=== PATIENT | female | born 1970 | race Caucasian/White ===

== ENCOUNTER 2020-05-09 19:46 | Emergency (ER) | payer BC, SELFPAY ==
[2020-05-09 19:47] VITALS: BP 134/85; PULSE 87; RESP 14; TEMP 36.8; O2SAT 97; BMI 25.9
--- NOTE | 2020-05-09 19:53 | CTR_ITS ---
PROCEDURE INFORMATION: Exam: CT Head Without Contrast Exam date and time: 05/09/2020 7:58 PM Age: 49 years old Clinical indication: Alteration of consciousness; Other: Found unresponsive; Patient HX: Possible carbon monoxide poisoning; Additional info: AMS TECHNIQUE: Imaging protocol: Computed tomography of the head without contrast. Radiation optimization: All CT scans at this facility use at least one of these dose optimization techniques: automated exposure control; mA and/or kV adjustment per patient size (includes targeted exams where dose is matched to clinical indication); or iterative reconstruction. COMPARISON: No relevant prior studies available. RADIATION DOSE METRICS: Total DLP (mGy-cm): 846.14 FINDINGS: Brain: Normal. No hemorrhage. Unremarkable white matter. No mass effect. Ventricles: Normal. No ventriculomegaly. Bones/joints: Unremarkable. No acute fracture. Sinuses: Visualized sinuses are unremarkable. No fluid levels. Mastoid air cells: Visualized mastoid air cells are well aerated. Soft tissues: Unremarkable. CT/CT head wo con* [id number] IMPRESSION: No acute intracranial abnormality. Radiation Dose CTDIVOL = (mGy): DLP = 846.14 (mGy-cm)
--- NOTE | 2020-05-09 20:02 | W.ED.GENADLT ---
HPI - General Adult General: Chief complaint: General Medical Stated complaint: LENNON/ POSSIBLE EXPOSURE/ FOUND UNRESPONSIVE Time Seen by Provider: 05/09/20 19:47 Source: patient and EMS Mode of arrival: EMS Limitations: no limitations History of Present Illness: HPI narrative: 49-year-old female who states that they were prepping to go on RV trip and she had the RV running down in the garage and she was upstairs. All the areas were and closed and patient states she had a headache so she took 3 tramadol's. arrived patient was unconscious and he could smell exhausts. EMS arrived patient had a pinpoint pupils they gave her Narcan. She awoke and states that she was having a terrible headache is why she took the tramadol. Concerned of also carbon monoxide poisoning. Patient is now awake and alert able answer all my questions appropriately she states she still does have a headache. Associated symptoms: Reports headache(s); Deny chest pain, dyspnea, nausea, rash or vomiting Review of Systems Const: Denies: fever(s), chills, body aches or change in appetite Eyes: Denies: blurry vision or eye discomfort ENMT: Denies: throat pain or dental pain Card: Denies: chest pain Resp: Denies: dyspnea GI: Denies: abdominal pain, nausea, vomiting or diarrhea : Denies: dysuria Musc: Denies: neck pain or back pain Skin/Breast: Denies: rash Neuro: Reports: headache(s) Psych: Denies: depression Catrachito/Lymph: Denies: easy bruising All/Imm: Denies: urticaria Physical Exam Const: COMMON NORMALS: no acute distress, patient oriented x3 and healthy appearing HENMT: COMMON NORMALS: normocephalic and atraumatic HEAD & SCALP: normocephalic and atraumatic Eye: COMMON NORMALS: Equal, round and reactive pupils present and EOMs intact bilaterally PUPIL: Yes Equal, round and reactive pupils present Neck/C-Spine: COMMON NORMALS: full ROM and supple Chest: COMMONS NORMALS: normal inspection of the chest and normal palpation of entire chest wall Resp: COMMON NORMALS: normal respiratory effort, No retractions, No use of accessory muscles and clear to auscultation bilaterally AUSCULTATION: clear to auscultation bilaterally Cardio: COMMON NORMALS: regular rate, regular rhythm and No murmurs present (Cardio) RATE: regular rate RHYTHM: regular rhythm GI: COMMON NORMALS: Normal to inspection, nondistended, normoactive bowel sounds present, Soft to palpation, non-tender and no masses PALPATION: Yes Soft to palpation Extremity: COMMON NORMALS: normal to inspection and full ROM Neuro: COMMON NORMALS: patient oriented x3, moves all extremities and no focal motor deficits Psych: COMMON NORMALS: mental status grossly normal, Normal thought process present and cooperative THOUGHT PROCESS: Normal thought process present Skin: COMMON NORMALS: no rashes or lesions noted and no wounds GENERAL SKIN EXAM: no rashes or lesions noted Course Vital Signs: Vital signs: Vital Signs Temperature 98.2 F 05/09/20 19:47 Pulse Rate 82 05/09/20 23:29 Respiratory Rate 18 05/09/20 23:29 Blood Pressure 148/74 05/09/20 23:29 Pulse Oximetry 95 05/09/20 23:29 MDM - General Adult MDM Narrative: Medical decision making narrative: Lilly presents here with car monoxide exposure and poisoning. Patient is been awake and alert here the whole time and has been asymptomatic. Patient's carboxy level dropped to 6. Her lab work is normal. She has no signs of overdose. I spoke to poison control they recommended she was safe for discharge. Patient is wanting to be discharged I feel she is stable and is to return if she has any symptoms. She understands agrees to plan. Lab Data: Labs: Lab Results 05/09/20 05/09/20 05/09/20 Range/Units 20:07 20:26 20:26 WBC 15.2 H (4.0-10.0) 10^3/ uL RBC 4.06 L (4.1-5.3) 10^6/u L Hgb 12.4 (11.5-15.3) g/dL Hct 37.1 (37.0-47.0) % MCV 91.4 (81-99) fL MCH 30.5 (28.0-34.0) pg MCHC 33.4 (30.0-36.0) g/dL RDW 13.8 (12.1-15.1) % Plt Count 296 (130-400) 10^3/c mm MPV 11.2 H (7.4-10.4) fL Neut % (Auto) 88.0 % Lymph % (Auto) 8.1 % [place] % (Auto) 3.2 % Eos % (Auto) 0.1 % Baso % (Auto) 0.3 % Neut # (Auto) 13.33 H (1.8-7.7) 10^3/u L Lymph # (Auto) 1.2 (0.8-4.8) 10^3/u L [place] # (Auto) 0.5 (0.2-0.9) 10^3/u L Eos # (Auto) 0.0 (0.0-0.8) 10^3/u L Baso # (Auto) 0.1 (0.0-0.1) 10^3/u L Nucleated RBC % (a uto) 0 % Nucleated RBCs # 0.0 /100WBC Specimen Type Arterial Sample Site Brachial, right ABG pH 7.35 (7.35-7.45) ABG pCO2 43.0 (35-45) mmHg ABG pO2 436.0 H (80.0-100.0) mmH g ABG HCO3 23.8 (22-26) mmol/L ABG O2 Saturation ABG Base Excess -1.9 (-2.0-2.0) mmol/ L Tom Test N/a Hematocrit 38.7 (37-47) % Hgb O2 Saturation 72.6 L (95-100) % Carboxyhemoglobin 26.4 H (0.4-20.1) %THgb Methemoglobin 1.1 (0.4-1.5) % Total Hemoglobin 12.6 (12-16) g/dL O2 Delivery Device Nrb O2 Liters/Min 15.0 % Specimen Drawn By Equipment Maint Tech ID Harkr Sodium 135 L (136-145) mmol/L Potassium 3.8 (3.5-5.1) mmol/L Chloride 102 (98-107) mmol/L Carbon Dioxide 24 (22-29) mmol/L Anion Gap 12.8 (5-19) BUN 17 (6-20) mg/dL Creatinine 0.8 (0.5-0.9) mg/dL GFR Calculation 75.9 L (90-130) mL/min Glucose 187 H (65-115) mg/dL Calculated Osmolal ity 281 L (285-295) mOsm/k g Lactate (0.5-2.2) mmol/L Calcium 9.2 (8.5-10.5) mg/dL Total Bilirubin 0.2 (0.15-1.2) mg/dL AST 16 (0-32) U/L ALT 12 (0-33) U/L Alkaline Phosphata se 50 (35-105) IU/L Troponin T Baselin e (0-10) ng/L Troponin T 120 Min [place] (0-10) ng/L Delta Troponin T (0-10) ABS# Total Protein 6.4 L (6.6-8.7) g/dL Albumin 4.2 (3.5-5.2) g/dL Globulin 2.2 (1.3-4.6) g/dL Salicylates < 0.3 L (3-10) mg/dL Acetaminophen < 5.0 L (10-30) ug/mL Ethyl Alcohol < 10 (0-10) mg/dL 05/09/20 05/09/20 05/09/20 Range/Units 20:26 20:54 22:04 WBC (4.0-10.0) 10^3/ uL RBC (4.1-5.3) 10^6/u L Hgb (11.5-15.3) g/dL Hct (37.0-47.0) % MCV (81-99) fL MCH (28.0-34.0) pg MCHC (30.0-36.0) g/dL RDW (12.1-15.1) % Plt Count (130-400) 10^3/c mm MPV (7.4-10.4) fL Neut % (Auto) % Lymph % (Auto) % [place] % (Auto) % Eos % (Auto) % Baso % (Auto) % Neut # (Auto) (1.8-7.7) 10^3/u L Lymph # (Auto) (0.8-4.8) 10^3/u L [place] # (Auto) (0.2-0.9) 10^3/u L Eos # (Auto) (0.0-0.8) 10^3/u L Baso # (Auto) (0.0-0.1) 10^3/u L Nucleated RBC % (a uto) % Nucleated RBCs # /100WBC Specimen Type Arterial Sample Site Brachial, right ABG pH 7.39 (7.35-7.45) ABG pCO2 39.1 (35-45) mmHg ABG pO2 324.0 H (80.0-100.0) mmH g ABG HCO3 23.9 (22-26) mmol/L ABG O2 Saturation ABG Base Excess -0.9 (-2.0-2.0) mmol/ L Tom Test N/a Hematocrit 40.6 (37-47) % Hgb O2 Saturation (95-100) % Carboxyhemoglobin (0.4-20.1) %THgb Methemoglobin (0.4-1.5) % Total Hemoglobin (12-16) g/dL O2 Delivery Device Nrb O2 Liters/Min 15.0 % Specimen Drawn By Harkr Equipment Maint Tech ID Harkr Sodium (136-145) mmol/L Potassium (3.5-5.1) mmol/L Chloride (98-107) mmol/L Carbon Dioxide (22-29) mmol/L Anion Gap (5-19) BUN (6-20) mg/dL Creatinine (0.5-0.9) mg/dL GFR Calculation (90-130) mL/min Glucose (65-115) mg/dL Calculated Osmolal ity (285-295) mOsm/k g Lactate 1.7 (0.5-2.2) mmol/L Calcium (8.5-10.5) mg/dL Total Bilirubin (0.15-1.2) mg/dL AST (0-32) U/L ALT (0-33) U/L Alkaline Phosphata se (35-105) IU/L Troponin T Baselin e 8 (0-10) ng/L Troponin T 120 Min [place] (0-10) ng/L Delta Troponin T (0-10) ABS# Total Protein (6.6-8.7) g/dL Albumin (3.5-5.2) g/dL Globulin (1.3-4.6) g/dL Salicylates (3-10) mg/dL Acetaminophen (10-30) ug/mL Ethyl Alcohol (0-10) mg/dL 05/09/20 05/09/20 Range/Units 22:21 22:45 WBC (4.0-10.0) 10^3/ uL RBC (4.1-5.3) 10^6/u L Hgb (11.5-15.3) g/dL Hct (37.0-47.0) % MCV (81-99) fL MCH (28.0-34.0) pg MCHC (30.0-36.0) g/dL RDW (12.1-15.1) % Plt Count (130-400) 10^3/c mm MPV (7.4-10.4) fL Neut % (Auto) % Lymph % (Auto) % [place] % (Auto) % Eos % (Auto) % Baso % (Auto) % Neut # (Auto) (1.8-7.7) 10^3/u L Lymph # (Auto) (0.8-4.8) 10^3/u L [place] # (Auto) (0.2-0.9) 10^3/u L Eos # (Auto) (0.0-0.8) 10^3/u L Baso # (Auto) (0.0-0.1) 10^3/u L Nucleated RBC % (a uto) % Nucleated RBCs # /100WBC Specimen Type Sample Site ABG pH 7.39 (7.35-7.45) ABG pCO2 39.1 (35-45) mmHg ABG pO2 324.0 H (80.0-100.0) mmH g ABG HCO3 23.9 (22-26) mmol/L ABG O2 Saturation 97 ABG Base Excess -0.9 (-2.0-2.0) mmol/ L Tom Test N/a Hematocrit 40.6 (37-47) % Hgb O2 Saturation (95-100) % Carboxyhemoglobin 6.1 (0.4-20.1) %THgb Methemoglobin (0.4-1.5) % Total Hemoglobin (12-16) g/dL O2 Delivery Device Nrb O2 Liters/Min 15.0 % Specimen Drawn By Harkr Equipment Maint Tech ID Sodium (136-145) mmol/L Potassium (3.5-5.1) mmol/L Chloride (98-107) mmol/L Carbon Dioxide (22-29) mmol/L Anion Gap (5-19) BUN (6-20) mg/dL Creatinine (0.5-0.9) mg/dL GFR Calculation (90-130) mL/min Glucose (65-115) mg/dL Calculated Osmolal ity (285-295) mOsm/k g Lactate (0.5-2.2) mmol/L Calcium (8.5-10.5) mg/dL Total Bilirubin (0.15-1.2) mg/dL AST (0-32) U/L ALT (0-33) U/L Alkaline Phosphata se (35-105) IU/L Troponin T Baselin e (0-10) ng/L Troponin T 120 Min [place] 10.46 H (0-10) ng/L Delta Troponin T 2.46 (0-10) ABS# Total Protein (6.6-8.7) g/dL Albumin (3.5-5.2) g/dL Globulin (1.3-4.6) g/dL Salicylates (3-10) mg/dL Acetaminophen (10-30) ug/mL Ethyl Alcohol (0-10) mg/dL Imaging Data^: CXR: Attestation: I personally reviewed and interpreted this imaging study as follows: My impression: no acute abnormality CT Head: Attestation: I personally reviewed and interpreted this imaging study as follows: Radiologist's impression: [place] [address] CT Scan Report Signed Patient: Lilly Teran Unit #: [id number] : 1970 Age/Sex: 49 / F ADM Date: 05/09/20 Loc: ER Room/Bed: Attending Dr: Ordering Provider/Ordering MD: Morgan Marrero MD Date of Service: 05/09/20 Procedure(s): CT head wo con* [id number] Accession Number(s): [id number] Report Number: [id number] PROCEDURE INFORMATION: Exam: CT Head Without Contrast Exam date and time: 05/09/2020 7:58 PM Age: 49 years old Clinical indication: Alteration of consciousness; Other: Found unresponsive; Patient HX: Possible carbon monoxide poisoning; Additional info: AMS TECHNIQUE: Imaging protocol: Computed tomography of the head without contrast. Radiation optimization: All CT scans at this facility use at least one of these dose optimization techniques: automated exposure control; mA and/or kV adjustment per patient size (includes targeted exams where dose is matched to clinical indication); or iterative reconstruction. COMPARISON: No relevant prior studies available. RADIATION DOSE METRICS: Total DLP (mGy-cm): 846.14 FINDINGS: Brain: Normal. No hemorrhage. Unremarkable white matter. No mass effect. Ventricles: Normal. No ventriculomegaly. Bones/joints: Unremarkable. No acute fracture. Sinuses: Visualized sinuses are unremarkable. No fluid levels. Mastoid air cells: Visualized mastoid air cells are well aerated. Soft tissues: Unremarkable. CT/CT head wo con* [id number] IMPRESSION: No acute intracranial abnormality. EKG Data^: EKG 1: Attestation: I personally reviewed and interpreted this EKG as follows: EKG interpretation date: 05/09/20 EKG interpretation time: 20:46 Interpretation: nsr hr [address] or t wave abnormalities qrs 99 qtc 448 Computer generated interpretation: Head CT 05/09/20 19:53 IMPRESSION: No acute intracranial abnormality. Radiation Dose CTDIVOL = (mGy): DLP = 846.14 (mGy-cm) Discharge Plan Discharge Patient Disposition: Home Clinical Impression: Carbon monoxide poisoning Qualifiers: Encounter type: initial encounter Injury intent: accidental or unintentional Qualified Code(s): T58.91XA - Toxic effect of carbon monoxide from unspecified source, accidental (unintentional), initial encounter Condition: Stable Prescriptions: No Action Zyrtec 10 mg Tablet 10 mg PO DAILY RF: 0 lisinopril-hydrochlorothiazide 20-12.5 mg tablet 1 tab PO DAILY RF: 0 estradiol 0.05 mg/24 hr patch semiweekly See Rx Instructions .ROUTE .COMPLEX RF: 0 Benadryl 25 mg Capsule 25 mg PO Q4H PRN (Reason: unknown) RF: 0 ibuprofen 200 mg Tablet 600 mg PO PRN RF: 0 Discharge Orders: Discharge Order (Routine); Ordered 05/09/20 Ordered By: Morgan Marrero Discharge Diet: Advance as tolerated Discharge Activity: Resume usual activity Patient Instructions: Carbon Monoxide Exposure (ED) Discharge Date/Time: 05/09/20 23:31 Coding Level of Care Code ED Executive Director [employer] Fwd Exam Comprehensive
[2020-05-09 20:18] LABS: ABG PH Result 7.35 (7.35-7.45); Arterial Blood Gas Hematocrit 38.7 % (37-47); Base Excess ABG -1.9 mmol/L (-2.0-2.0); Blood Gas Operator Identificat HARKR; Blood Gas Sample Site Brachial, right; Blood Gas Sample Type Arterial; Carboxyhemoglobin 26.4 %THgb (0.4-20.1); HCO3 ABG 23.8 mmol/L (22-26); HGB O2 Sat 72.6 % (95-100); Methemoglobin 1.1 % (0.4-1.5); Oxygen Device NRB; Total Hemoglobin 12.6 g/dL (12-16)
--- NOTE | 2020-05-09 20:32 | ECG_ITS ---
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 Measurements Intervals [place] Rate: 71 P: 60 LA: 184 QRS: 36 QRSD: 99 T: 55 QT: 426 QTc: 464 Interpretive Statements SINUS RHYTHM POSSIBLE LEFT ATRIAL ENLARGEMENT [-0.1mV P WAVE IN V1/V2] LOW QRS VOLTAGE IN PRECORDIAL LEADS [QRS DEFLECTION < 1.0 mV IN CHEST LEADS] No previous ECG available for comparison Electronically Signed On 05-10-2020 16:03:09 CDT by Lang Salas M.D. [id number]
[2020-05-09 20:38] LABS: Basophils # 0.1 10^3/uL (0.0-0.1); Basophils % 0.3 %; Eosinophils % 0.1 %; Hematocrit 37.1 % (37.0-47.0); Hemoglobin 12.4 g/dL (11.5-15.3); Lymphocytes # 1.2 10^3/uL (0.8-4.8); Lymphocytes % 8.1 %; Mean Corpuscular HGB Conc 33.4 g/dL (30.0-36.0); Mean Corpuscular Hemoglobin 30.5 pg (28.0-34.0); Mean Corpuscular Volume 91.4 fL (81-99); Mean Platelet Volume 11.2 fL (7.4-10.4); Monocytes # 0.5 10^3/uL (0.2-0.9); Monocytes % 3.2 %; Neutrophils # 13.33 10^3/uL (1.8-7.7); Nucleated Red Blood Cells % 0 %; Platelet Count 296 10^3/cmm (130-400); Red Blood Count 4.06 10^6/uL (4.1-5.3); Red Cell Distribution Width 13.8 % (12.1-15.1); White Blood Count 15.2 10^3/uL (4.0-10.0)
--- NOTE | 2020-05-09 20:46 | XRR_ITS ---
PROCEDURE INFORMATION: Exam: XR Chest, 1 View Exam date and time: 05/09/2020 8:59 PM Age: 49 years old Clinical indication: Shortness of breath; Patient HX: SOB, carbon monoxide exposure TECHNIQUE: Imaging protocol: XR of the chest Views: Frontal portable upright view of the chest. COMPARISON: No relevant prior studies available. FINDINGS: Lungs: The lungs are clear bilaterally. The pulmonary vasculature is normal. Pleural space: No pleural effusion. No pneumothorax. Heart/Mediastinum: The heart is normal in size and contour. Bones/joints: Right lateral small vertebral body marginal osteophytes are noted at multiple thoracic spinal levels. XR/XR chest 1V portable [id number] IMPRESSION: No acute cardiopulmonary abnormality identified.
[2020-05-09 20:51] LABS: Alanine Aminotransferase 12 U/L (0-33); Albumin Level 4.2 g/dL (3.5-5.2); Alkaline Phosphatase 50 IU/L (35-105); Anion Gap 12.8 (5-19); Aspartate Amino Transferase 16 U/L (0-32); Blood Urea Nitrogen 17 mg/dL (6-20); Calcium 9.2 mg/dL (8.5-10.5); Carbon Dioxide 24 mmol/L (22-29); Chloride 102 mmol/L (98-107); Globulin 2.2 g/dL (1.3-4.6); Glomerular Filtration Rate 75.9 mL/min (90-130); Glucose 187 mg/dL (65-115); Osmolality Calculated 281 mOsm/kg (285-295); Potassium 3.8 mmol/L (3.5-5.1); Sodium 135 mmol/L (136-145); Total Bilirubin 0.2 mg/dL (0.15-1.2); Total Protein 6.4 g/dL (6.6-8.7)
[2020-05-09 20:56] LABS: Acetaminophen < 5.0 ug/mL (10-30); Alcohol Level < 10 mg/dL (0-10); Salicylate < 0.3 mg/dL (3-10)
[2020-05-09 21:07] LABS: Troponin(5th) Baseline 8 ng/L (0-10)
[2020-05-09 21:31] LABS: Lactate (Lactic Acid level) 1.7 mmol/L (0.5-2.2)
[2020-05-09 22:15] LABS: ABG PCO2 39.1 mmHg (35-45); ABG PH Result 7.39 (7.35-7.45); Arterial Blood Gas Hematocrit 40.6 % (37-47); Base Excess ABG -0.9 mmol/L (-2.0-2.0); Blood Gas Operator Identificat HARKR; Blood Gas Sample Site Brachial, right; Blood Gas Sample Type Arterial; HCO3 ABG 23.9 mmol/L (22-26); Oxygen Device NRB
--- NOTE | 2020-05-09 22:32 | ECG_ITS ---
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 Measurements Intervals [place] Rate: 60 P: 49 DC: 173 QRS: 21 QRSD: 106 T: 28 QT: 417 QTc: 417 Interpretive Statements SINUS RHYTHM LOW QRS VOLTAGE IN PRECORDIAL LEADS [QRS DEFLECTION < 1.0 mV IN CHEST LEADS] No previous ECG available for comparison Electronically Signed On 05-10-2020 16:15:38 CDT by Lang Salas M.D. [email or web address] - [email or web address] [email or web address] [email or web address]/[id number]
[2020-05-09 22:57] LABS: Blood Gas Drawn By HARKR
[2020-05-09 23:15] LABS: Troponin 5 2HR 10.46 ng/L (0-10); Troponin 5 2HR Delta 2.46 ABS# (0-10)
[2020-05-09 23:22] LABS: ABG PCO2 39.1 mmHg (35-45); ABG PH Result 7.39 (7.35-7.45); Base Excess ABG -0.9 mmol/L (-2.0-2.0); Blood Gas Drawn By HARKR; HCO3 ABG 23.9 mmol/L (22-26); Oxygen Device NRB; Oxygen Saturation ABG 97
[2020-05-09 23:23] LABS: Arterial Blood Gas Hematocrit 40.6 % (37-47); Carboxyhemoglobin 6.1 %THgb (0.4-20.1)
[2020-05-09 23:29] VITALS: BP 148/74; PULSE 82; RESP 18; O2SAT 95
== END 2020-05-09 23:31 | disposition home or self-care (01) ==
PROVIDERS: Emergency Provider Emergency Medicine
DX: T58.91XA Toxic effect of carbon monoxide from unspecified source, accidental (unintentional), initial encounter (principal)
CPT/HCPCS: 12345; 36600; 70450; 71045; 80051; 80053; 80307; 82803; 82805; 82810; 83605; 83986; 84484; 85025; 93005; 96360; 99282; 99284